=== PATIENT | male | born 1955 | race Caucasian/White ===

== ENCOUNTER 2017-05-07 15:46 | Inpatient (IN) | payer OTHER ==
[2017-05-07] MEDS ORDERED: HEPARIN SODIUM,PORCINE 5,000 UNIT/ML 1 ML VIAL IV PRN (16:20)
[2017-05-07] MEDS ORDERED: HEPARIN SODIUM,PORCINE 5,000 UNIT/ML 1 ML VIAL IV ONE (16:20)
[2017-05-07] MEDS ORDERED: NITROGLYCERIN SL TABS 0.4 MG TAB SUBLINGUAL PRN ×2 (16:20→17:28)
[2017-05-07] MEDS ORDERED: ASPIRIN 81 MG CHEW PO STA (16:20)
[2017-05-07] MEDS: ATORVASTATIN 80 MG TAB PO SCH ×2 (16:25→16:26)
[2017-05-07] MEDS: SODIUM CHLORIDE 0.9% 1,000 ML IV STA ×2 (16:27→21:23)
[2017-05-07] MEDS ORDERED: ATORVASTATIN 80 MG TAB PO STA (16:27)
--- NOTE | 2017-05-07 16:28 | ED ---
General Adult HPI - General Chief complaint: Chest Pain Stated complaint: chest pain Time Seen by Provider: 05/07/17 15:51 Source: patient, RN notes reviewed, old records reviewed Mode of arrival: ambulatory Limitations: no limitations - History of Present Illness Initial comments: This is a 61-year-old male to the ER for evaluation. This patient presents for evaluation of chest pain, anterior having anterior chest pain. A significant episode of pain yesterday and continuing with pain over hour prior to arrival he was diaphoretic on the car ride, with mild shortness of breath. Patient has both father and grandfather with history of heart disease and heart attack. Patient denies cough or congestion. At this time reaction states his pain has improved upon arrival to the emergency room - Related Data Home Medications Medication Instructions Recorded Confirmed Aspirin 81 mg PO DAILY 05/07/17 05/07/17 Allergies Allergy/AdvReac Type Severity Reaction Status Date / Time hydrocortisone Allergy Rash/Hives Verified 05/07/17 19:25 codeine AdvReac Nightmares Verified 05/07/17 19:25 Review of Systems ROS Statement: Those systems with pertinent positive or pertinent negative responses have been documented in the HPI. ROS Other: All systems not noted in ROS Statement are negative. Past Medical History Past Medical History: Hyperlipidemia History of Any Multi-Drug Resistant Organisms: None Reported Additional Past Surgical History / Comment(s): tibia repair Past Psychological History: Anxiety Smoking Status: Current every day smoker Past Alcohol Use History: Rare Past Drug Use History: None Reported General Exam Limitations: no limitations General appearance: alert, in no apparent distress, anxious Head exam: Present: atraumatic, normocephalic, normal inspection Eye exam: Present: normal appearance, PERRL, EOMI. Absent: scleral icterus, conjunctival injection, periorbital swelling ENT exam: Present: normal exam, mucous membranes moist Neck exam: Present: normal inspection. Absent: tenderness, meningismus, lymphadenopathy Respiratory exam: Present: normal lung sounds bilaterally. Absent: respiratory distress, wheezes, rales, rhonchi, stridor Cardiovascular Exam: Present: regular rate, normal rhythm, normal heart sounds. Absent: systolic murmur, diastolic murmur, rubs, gallop, clicks GI/Abdominal exam: Present: soft, normal bowel sounds. Absent: distended, tenderness, guarding, rebound, rigid Extremities exam: Present: normal inspection, full ROM, normal capillary refill. Absent: tenderness, pedal edema, joint swelling, calf tenderness Back exam: Present: normal inspection Neurological exam: Present: alert, oriented X3, CN II-XII intact Psychiatric exam: Present: normal affect, normal mood Skin exam: Present: warm, dry, intact, normal color. Absent: rash Course Vital Signs 05/07/17 05/07/17 05/07/17 15:48 16:26 16:29 Temperature 97.3 F L Pulse Rate 73 89 92 Respiratory 22 18 18 Rate Blood Pressure 144/78 212/96 199/98 O2 Sat by Pulse 100 100 99 Oximetry - Reevaluation(s) Reevaluation #1: 05/07/17 16:27 STEMI paged, spoke with integrated circuits inspector, will take patient to Health Plan Manager EKG Findings - EKG Comments: EKG Findings:: EKG shows ST elevation, inferior ST elevation, anterior V2 V3 depression Medical Decision Making - Medical Decision Making 61-year-old ER for evaluation patient because the chest pain, classic anterior chest pain having with diaphoresis, positive ST elevation on EKG. Patient be admitted to geophysical laboratory chief, heparin and aspirin - Lab Data Result diagrams: 05/09/17 06:57 05/09/17 06:57 - Radiology Data Radiology results: report reviewed (Chest x-ray negative), image reviewed Critical Care Time Critical Care Time: Yes Total Critical Care Time: 31 Disposition Clinical Impression: Acute transmural inferior wall KS, Chest pain, ST elevation myocardial infarction (STEMI) Disposition: ADMITTED IP TO THIS HOSP Condition: Serious
[2017-05-07] MEDS ORDERED: HEPARIN SODIUM,PORCINE/D5W PMX 25,000 UNIT in DEXTROSE/WATER 1 500ML.BAG IV SCH (16:30)
[2017-05-07] MEDS ORDERED: IV FLUID CONTINUATION 750 ML IV ONE (16:33)
[2017-05-07] MEDS ORDERED: SODIUM CHLORIDE 0.9% 500 ML IV ONE (16:35)
[2017-05-07 16:36] LABS: CH 33.5; CHCM 34.9; HCT 43.9 % (39.0-53.0); HDW 2.34; HGB 15.3 gm/dL (13.0-17.5); MCH 33.6 pg (25.0-35.0); MCHC 34.8 g/dL (31.0-37.0); MCV 96.4 fL (80.0-100.0); Mean Platelet Volume 7.9; RBC 4.56 m/uL (4.30-5.90); RDW 12.5 % (11.5-15.5); WBC 10.2 k/uL (3.8-10.6)
[2017-05-07 16:43] LABS: ALT 47 U/L (21-72); AST 49 U/L (17-59); Alkaline Phosphatase 92 U/L (38-126); Anion Gap 12 mmol/L; Blood Urea Nitrogen 16 mg/dL (9-20); Calcium 9.3 mg/dL (8.4-10.2); Carbon Dioxide 24 mmol/L (22-30); Chloride 104 mmol/L (98-107); Glucose 108 mg/dL (74-99); Non-African American GFR(MDRD) >60 (>60 ml/min/1.73 sqM); Sodium 140 mmol/L (137-145); Total Bilirubin 0.6 mg/dL (0.2-1.3); Total Protein 7.3 g/dL (6.3-8.2)
[2017-05-07] MEDS ORDERED: LIDOCAINE 2% INJ 20 MG/ML (20 ML MDV) ONE (16:43)
[2017-05-07] MEDS ORDERED: MIDAZOLAM 2 MG/2 ML VIAL IV ONE (16:45)
[2017-05-07 16:47] LABS: Partial Thromboplastin Time 23.3 sec (22.0-30.0); Prothrombin Time 10.3 sec (9.0-12.0)
[2017-05-07] MEDS ORDERED: diphenhydrAMINE 50 MG/ML 1 ML VIAL IVP ONE (16:47)
[2017-05-07] MEDS ORDERED: MIDAZOLAM 2 MG/2 ML VIAL ONE (16:49)
--- NOTE | 2017-05-07 16:49 | XR ---
EXAMINATION TYPE: XR chest 1V portable DATE OF EXAM: 05/07/2017 COMPARISON: NONE HISTORY: Chest pain TECHNIQUE: Single AP portable frontal upright view of the chest is obtained. FINDINGS: There is no focal air space opacity, pleural effusion, or pneumothorax seen. The cardiac silhouette size is within normal limits. The osseous structures are intact. IMPRESSION: No acute process.
[2017-05-07] MEDS ORDERED: LIDOCAINE 2% INJ 20 MG/ML SQ ONE (16:50)
[2017-05-07] MEDS ORDERED: diphenhydrAMINE 50 MG/ML 1 ML VIAL ONE (16:50)
[2017-05-07] MEDS ORDERED: METOPROLOL TARTRATE 5 MG/5 ML VIAL IVP ONE (16:53)
[2017-05-07] MEDS: METOPROLOL TARTRATE 5 MG/5 ML VIAL IVP ONE ×2 (16:56→17:04)
[2017-05-07] MEDS ORDERED: BIVALIRUDIN BOLUS 250 MG/50 ML IV ONE (17:00)
[2017-05-07] MEDS ORDERED: BIVALIRUDIN 250 MG in SODIUM CHLORIDE 0.9% 50 ML IV ONE (17:00)
[2017-05-07] MEDS ORDERED: PRASUGREL 10 MG TAB PO ONE (17:05)
[2017-05-07] MEDS ORDERED: PRASUGREL 10 MG TAB ONE (17:05)
[2017-05-07] MEDS: NITROGLYCERIN 1000MCG/10ML SYRINGE INTRAARTER ONE ×2 (17:07→17:17)
[2017-05-07] MEDS ORDERED: niCARdipine Syringe (1,000 mcg/10 mL) INTRAARTER ONE (17:09)
[2017-05-07 17:13] LABS: Creatine Kinase MB 1.8 ng/mL (0.0-2.4)
[2017-05-07 17:14] LABS: Troponin I 0.512 ng/mL (0.000-0.034)
--- NOTE | 2017-05-07 17:15 | P.CRDCN ---
History of Present Illness Consult date: 05/07/17 History of present illness: This is a 61-year-old gentleman with history of smoking, family history of ischemic heart disease and also hypercholesterolemia came to the emergency room with complaints of prolonged chest pain. He claims 2 days ago he had an episode of chest pain lasting one half hour and then subsided spontaneously. Today around 2:00 patient started having heavy feeling in the chest associated with sweating and nausea. Finally patient came to the emergency room. His EKG showed evidence of acute inferior wall myocardial infarction. Patient is advised to have a cardiac cath with the intention of primary stent placement. Patient was explained the risks and benefits of the procedure Review of Systems Not obtained. Past Medical History Past Medical History: Hyperlipidemia History of Any Multi-Drug Resistant Organisms: None Reported Additional Past Surgical History / Comment(s): tibia repair Past Psychological History: Anxiety Smoking Status: Current every day smoker Past Alcohol Use History: Rare Past Drug Use History: None Reported Medications and Allergies Allergies Allergy/AdvReac Type Severity Reaction Status Date / Time hydrocortisone Allergy Rash/Hives Verified 05/07/17 15:50 Physical Exam Vitals: Vital Signs Temp Pulse Resp BP Pulse Ox 05/07/17 16:29 92 18 199/98 99 05/07/17 16:26 89 18 212/96 100 05/07/17 15:48 97.3 F L 73 22 144/78 100 Intake and Output 05/07/17 05/07/17 05/07/17 06:59 14:59 22:59 Other: Weight 83.915 kg Patient Weight 05/08/17 06:59 Weight 83.915 kg GENERAL EXAM: Patient is alert and oriented and doesn't appear to be in any acute distress HEENT: Normocephalic. Normal reaction of pupils, equal size, normal range of extraocular motion. No erythema or exudates in the throat. NECK: No masses, no nuchal rigidity. CHEST: No chest wall deformity. LUNGS: Equal air entry with no crackles or wheeze. HEART: S1 and S2 normal with no audible mumurs or gallops. Regular rhythm, femorals equal on both sides.. ABDOMEN: No hepatosplenomegaly, normal bowel sounds, no guarding or rigidity. SKIN: No rashes CENTRAL NERVOUS SYSTEM: No focal deficits. EXTREMITIES: No cyanosis, clubbing or edema. Results 05/07/17 16:30 05/07/17 16:30 Cardiac Enzymes 05/07/17 Range/Units 16:30 AST 49 (17-59) U/L Coagulation 05/07/17 Range/Units 16:30 PT 10.3 (9.0-12.0) sec APTT 23.3 (22.0-30.0) sec CBC 05/07/17 Range/Units 16:30 WBC 10.2 (3.8-10.6) k/uL RBC 4.56 (4.30-5.90) m/uL Hgb 15.3 (13.0-17.5) gm/dL Hct 43.9 (39.0-53.0) % Plt Count 240 (150-450) k/uL Comprehensive Metabolic Panel 05/07/17 Range/Units 16:30 Sodium 140 (137-145) mmol/L Potassium 4.0 (3.5-5.1) mmol/L Chloride 104 (98-107) mmol/L Carbon Dioxide 24 (22-30) mmol/L BUN 16 (9-20) mg/dL Creatinine 0.89 (0.66-1.25) mg/dL Glucose 108 H (74-99) mg/dL Calcium 9.3 (8.4-10.2) mg/dL AST 49 (17-59) U/L ALT 47 (21-72) U/L Alkaline Phosphatase 92 (38-126) U/L Total Protein 7.3 (6.3-8.2) g/dL Albumin 4.4 (3.5-5.0) g/dL Current Medications Generic Name Dose Route Start Last Admin Trade Name Angelitoq PRN Reason Stop Dose Admin Aspirin 325 mg 05/08/17 09:00 Aspirin PO DAILY [facility] Heparin Sodium (Porcine) 0 unit 05/07/17 16:20 Heparin IV Q6HR PRN Low PTT Protocol Sodium Chloride 1,000 mls @ 100 mls/hr 05/07/17 15:54 05/07/17 16:27 Saline 0.9% IV 05/08/17 01:53 100 mls/hr .Q10H STA Administration Heparin Sodium/Dextrose 25,000 500 mls @ 19.97 mls/hr 05/07/17 16:30 unit/ IV Solution IV .Q24H JOSE Protocol 11.9 UNITS/KG/HR Nitroglycerin 0.4 mg 05/07/17 16:20 Nitrostat SUBLINGUAL Q5M PRN Chest Pain Intake and Output 05/07/17 05/07/17 05/07/17 06:59 14:59 22:59 Other: Weight 83.915 kg Patient Weight 05/08/17 06:59 Weight 83.915 kg 05/07/17 16:30 05/07/17 16:30 EKG Interpretations (text) Sinus rhythm with acute inferior wall TN Assessment and Plan (1) Acute transmural inferior wall TN Status: Acute (2) Smoking Status: Acute (3) Hyperlipidemia Status: Acute (4) Family history of ischemic heart disease Status: Acute Plan: Proceed with cardiac catheterization with the intention of primary stent placement. Meanwhile, continue with aspirin, heparin, Plavix and beta blockers
--- NOTE | 2017-05-07 17:19 | P.PCN ---
Date of Procedure: 05/07/17 Preoperative Diagnosis: Acute inferior wall [place] Postoperative Diagnosis: Subtotal occlusion of the RCA with the intermediate lesion in the proximal LAD Procedure(s) Performed: Implants: Indications for Procedure: Operative Findings: Description of Procedure: HISTORY: This 61-year-old gentleman is admitted to the hospital with acute inferior wall myocardial infarction CONSENT:I have discussed the risks, benefits and alternative therapies for the above-mentioned procedure and for both sedation/analgesia as well as necessary blood product administration, if indicated, as they pertain to this patient. The patient has indicated understanding and acceptance of the risks and procedures discussed. . CONSCIOUS SEDATION: Patient was given Versed for sedation. The duration of the sedation is 15 minutes PROCEDURE: Patient was brought to the lab in a fasting state. Patient was given some IV sedation. The right groin is infiltrated with lidocaine and right femoral artery was entered using Seldinger technique. A 6-Rwandan catheter was left in place and selective coronary arteriography was performed. Patient tolerated the procedure well. No immediate complications were noted . Patient went on to have stent placement of the RCA by Dr. Russo HEMODYNAMICS: The aortic pressure is 160/98. Left ankle end-diastolic pressure was not measured. SELECTIVE CORONARY ARTERIOGRAPHY: LEFT MAIN: Normal length and patent THE LEFT ANTERIOR DESCENDING CORONARY ARTERY: . This is a good caliber vessel with about 50% stenosis involving the ostium. This is followed by an area. Affect is here. He did use ice to moderate caliber first diagonal branch. There is mild disease in the distal LAD THE LEFT CIRCUMFLEX AND IS CORONARY ARTERY: This is a good caliber vessel giving rise good-sized first OM branch. The circumflex and the branch are free of occlusive disease. THE RIGHT CORONARY ARTERY: This is a dominant vessel giving rise good-sized PDA and PLV. It has 95% stenosis in the distal portion with a filling defect size to of clot LEFT VENTRICULOGRAPHY: Not performed FINAL IMPRESSION: . Subtotal occlusion of the distal RCA with a clot. Moderate disease in the proximal LAD PLAN: Stent placement of the RCA PROGNOSIS: Guarded
[2017-05-07] MEDS ORDERED: IOHEXOL 350 MG/ML 125ML BOTTLE INJ ONE (17:21)
[2017-05-07] MEDS ORDERED: MAG HYDROX/AL HYDROX/SIMETH 30 ML CUP PO PRN (17:28)
[2017-05-07] MEDS ORDERED: ATROPINE SULFATE 0.1 MG/ML 10ML SYRINGE IV PRN (17:28)
[2017-05-07] MEDS ORDERED: ZOLPIDEM 5 MG TAB PO PRN (17:28)
[2017-05-07] MEDS ORDERED: RX INFO: IV CONTRAST WAS GIVEN 1 EACH MISC MISCELLANE PRN (17:28)
[2017-05-07] MEDS ORDERED: SODIUM CHLORIDE 0.9% 1,000 ML IV SCH (17:30)
[2017-05-07] MEDS ORDERED: ONDANSETRON 4 MG/2 ML VIAL ONE (18:23)
[2017-05-07] MEDS ORDERED: ONDANSETRON 4 MG/2 ML VIAL IVP ONE (18:25)
[2017-05-07 18:56] LABS: Glucose,Whole Blood 106 mg/dL (75-99)
[2017-05-07] MEDS ORDERED: ATORVASTATIN 80 MG TAB PO SCH (21:00)
[2017-05-07] MEDS: METOPROLOL TARTRATE 25 MG TAB PO SCH (21:22)
[2017-05-07 22:06] VITALS: BMI 26.5
[2017-05-07 23:50] LABS: Creatine Kinase MB 16.9 ng/mL (0.0-2.4); Troponin I 3.28 ng/mL (0.000-0.034)
[2017-05-08] MEDS ORDERED: ALPRAZolam 0.25 MG TAB PO PRN (01:06)
[2017-05-08 04:45] LABS: Cholesterol 213 mg/dL (<200); HDL Cholesterol 30 mg/dL (40-60); Non-African American GFR(MDRD) >60 (>60 ml/min/1.73 sqM); Triglycerides 188 mg/dL (<150)
[2017-05-08 06:14] LABS: Basophils # (A) 0.1 k/uL (0-0.2); Basophils % (A) 1 %; CH 33.3; CHCM 34.5; Eosinophils # (A) 0.4 k/uL (0-0.7); Eosinophils % (A) 4 %; HCT 43.3 % (39.0-53.0); HDW 2.29; HGB 14.8 gm/dL (13.0-17.5); Luc # (Auto) 0.15; Luc % (Auto) 1; Lymphocytes # (A) 2.1 k/uL (1.0-4.8); Lymphocytes % (A) 20 %; MCH 33.3 pg (25.0-35.0); MCHC 34.3 g/dL (31.0-37.0); Monocytes # (A) 0.6 k/uL (0-1.0); Monocytes % (A) 6 %; Neutrophils # (A) 6.8 k/uL (1.3-7.7); Neutrophils % (A) 67 %; RBC 4.46 m/uL (4.30-5.90); RDW 12.9 % (11.5-15.5); WBC 10.1 k/uL (3.8-10.6); WBC (Perox) 10.37
[2017-05-08 06:16] LABS: Anion Gap 9 mmol/L; Blood Urea Nitrogen 11 mg/dL (9-20); Calcium 8.9 mg/dL (8.4-10.2); Carbon Dioxide 21 mmol/L (22-30); Chloride 112 mmol/L (98-107); Glucose 90 mg/dL (74-99); Sodium 142 mmol/L (137-145)
[2017-05-08 06:18] LABS: Mean Platelet Volume 7.9
[2017-05-08] MEDS ORDERED: ASPIRIN 325 MG TAB PO SCH (09:00)
[2017-05-08] MEDS: NICOTINE 14MG/24HR PATCH TRANSDERM SCH (09:04)
[2017-05-08] MEDS: LISINOPRIL 10 MG TAB PO SCH (09:04)
[2017-05-08] MEDS: PRASUGREL 10 MG TAB PO SCH (09:04)
[2017-05-08] MEDS: ASPIRIN 325 MG TAB PO SCH (09:04)
[2017-05-08] MEDS: METOPROLOL TARTRATE 25 MG TAB PO SCH ×2 (09:04→20:58)
--- NOTE | 2017-05-08 11:24 | ECHOF ---
Referral Reason:stemi MEASUREMENTS -------- HEIGHT: 152.4 cm WEIGHT: 83.9 kg BP: 132/85 RVIDd: 3.4 cm (< 3.3) IVSd: 1.4 cm (0.6 - 1.1) LVIDd: 4.2 cm (3.9 - 5.3) LVPWd: 0.9 cm (0.6 - 1.1) IVSs: 1.6 cm LVIDs: 3.0 cm LVPWs: 1.0 cm LA Diam: 3.4 cm (2.7 - 3.8) LAESV Index (A-L): 28.91 ml/m Ao Diam: 3.7 cm (2.0 - 3.7) AV Cusp: 1.9 cm (1.5 - 2.6) LA Diam: 3.3 cm (2.7 - 3.8) MV EXCURSION: 18.048 mm (> 18.000) MV EF SLOPE: 150 mm/s (70 - 150) EPSS: 0.8 cm MV E Zeyad: 0.51 m/s MV DecT: 125 ms MV A Zeyad: 0.66 m/s MV E/A Ratio: 0.77 RAP: 5.00 mmHg RVSP: 11.59 mmHg FINDINGS -------- Sinus rhythm. This was a technically adequate study. There is mild concentric left ventricular hypertrophy. Overall left ventricular systolic function is mildly impaired with, an EF between 45 - 50 %. Inferior basal Hypokinesis Basal septal hypokinesis The right ventricle is normal in size. LA is midly dilated 29-33ml/m2. The right atrial size is normal. There is mild aortic valve sclerosis. There is no evidence of aortic regurgitation. Mild mitral annular calcification present. Mild mitral regurgitation is present. Mild tricuspid regurgitation present. There is no evidence of pulmonary hypertension. The right ventricular systolic pressure, as measured by Doppler, is 11.59mmHg. There is no pulmonic regurgitation present. The aortic root size is normal. There is no pericardial effusion. CONCLUSIONS -------- 1. There is mild concentric left ventricular hypertrophy. 2. There is no evidence of pulmonary hypertension. 3. The right ventricular systolic pressure, as measured by Doppler, is 11.59mmHg. 4. There is no pulmonic regurgitation present. 5. The aortic root size is normal. 6. There is no pericardial effusion. 7. Overall left ventricular systolic function is mildly impaired with, an EF between 45 - 50 %. 8. Inferior basal Hypokinesis 9. Basal septal hypokinesis 10. LA is midly dilated 29-33ml/m2. 11. There is mild aortic valve sclerosis. 12. Mild mitral annular calcification present. 13. Mild mitral regurgitation is present. 14. Mild tricuspid regurgitation present. MANAGER PACU: Constance Walsh RDCS
--- NOTE | 2017-05-08 12:10 | PTCA ---
DATE OF SERVICE: 05/07/2017 PERFORMING PHYSICIAN: Luis Haley MD, Transcribing Machine Mechanic. PROCEDURE PERFORMED: 1. An aspiration thrombectomy from the RCA. 2. Successful stenting of the RCA using 2.75 x 23 mm Xience DS with good angiographic results. COMPLICATIONS: None. INDICATION: This is a pleasant 61-year-old gentleman who presented to the hospital with chest discomfort and was diagnosed with acute inferior ST myocardial infarction and underwent emergent heart catheterization by Dr. Gonzalez and was found to have plaque rupture and thrombus formation involving the distal RCA. LEVEL OF SEDATION: Moderate. The sedation length of 22 minutes. PROCEDURE DESCRIPTION: After diagnostic heart catheterization was performed by Dr. Gonzalez and after reviewing the angiogram, we decided to pursue the interventional and the RCA. Anticoagulation was initiated using Angiomax. Subsequently a JR4 guide and the RCA was engaged. The Whisper wire was used to wire the RCA but subsequently I did aspiration thrombectomy from the distal RCA. Then I did stent the RCA distally using 2.75 x 23 mm Xience DS where the stent was positioned under fluoroscopic guidance and deployed under 14 atmospheres for 20 seconds with a post-dilated descent using 3.0 mm noncompliant balloon. The following angiogram showed good angiographic results without perforation and without dissection. The procedure was completed without any complication. PROCEDURE MANAGEMENT: 1. Dual antiplatelet therapy. ( ). 2. Will follow up with the patient. RANDY
--- NOTE | 2017-05-08 13:46 | HP ---
DATE OF ADMISSION: 05/07/17 CHIEF COMPLAINT: Chest pain. HISTORY OF PRESENT ILLNESS: This is a 61-year-old gentleman with a past medical history of multiple medical problems including hyperlipidemia, history of anxiety, being followed by primary physician in [place], was visiting family for vacation. The patient had chest pain which was felt in the anterior part of the chest for the last several days. Because of increasing pain, the patient came to [facility] and was found to have acute hyperacute inferior wall myocardial infarction. The patient underwent a cardiac catheterization which shows subtotal occlusion of the RCA with intermediate lesion in the proximal LAD. The patient underwent stenting of the RCA and the patient is being monitored in the ICU at this time. Otherwise troponin elevated up to 3.280, creatinine kinase 282. There is no fever, rigors or chills. No history of headache, loss of consciousness or seizures. Past medical history of hyperlipidemia, anxiety. Medications prior to admission are: Aspirin 81 mg daily. ALLERGIES: HYDROCORTISONE. FAMILY HISTORY: No history of heart disease or strokes in the family. SOCIAL HISTORY: History of smoking. Current smoking. REVIEW OF SYSTEMS: ENT: No diminished vision. No diminished hearing. Cardiovascular: As mentioned earlier. Respiratory: No cough, hemoptysis. GI: No nausea or vomiting. : No dysuria. Nervous system: No numbness or weakness. Allergy/Immunology: No asthma or hayfever. Musculoskeletal: As mentioned earlier. Hematology/Oncology: No history of anemia. Endocrine: No history of diabetes mellitus or hypothyroidism. Constitutional: As mentioned earlier. Dermatology: Negative. Rheumatology: Negative. Psychiatry: As mentioned earlier. PHYSICAL EXAMINATION: Alert and oriented times three. Pulse 72. Blood pressure 131/81. Respiratory rate 21, temperature 97.8. Pulse ox 98% on 2 L. HEENT: Conjunctivae normal. Oral mucosa moist. NECK: No JVD. No carotid bruit. No lymph node enlargement. Cardiovascular: S1, S2 muffled. No S3, no S4. Respiratory: Breath sounds diminished at the bases. No rhonchi. No crackles. Abdomen is soft. Nontender. No mass palpable. Legs: No edema. No swelling.. Nervous system: Higher functions as mentioned earlier. Moves all four limbs. No focal motor or sensory deficits. Lymphatics: No lymph nodes palpable in the neck, axillae or groin. SKIN: No ulcer, rash or bleeding. LABS: CBC within normal limits. Glucose 106. Creatinine kinase 282. Troponin 3.80. ASSESSMENT: 1. Hyperacute inferior wall myocardial infarction status post cardiac catheterization and RCA stenting. 2. History of nicotine dependence. 3. Hyperlipidemia. 5. History of anxiety. RECOMMENDATIONS AND DISCUSSION: In this 61-year-old gentleman who presented with multiple complex medical issues, we will monitor the patient closely. Closely monitor in the ICU. Continue beta blockers. Lipitor. As well as antiplatelet agents including Effient. Closely follow with cardiology. Repeat labs will ordered. Otherwise 2D echo with Doppler has been ordered. Prognosis guarded because of multiple complex medical issues. Discussed with the patient. Smoking cessation has been recommended also. Further recommendations to follow. See orders for further details. Discussed with the patient, understands and agrees. RANDY
[2017-05-08 15:40] VITALS: RESP 16
[2017-05-08] MEDS ORDERED: ATORVASTATIN 80 MG TAB PO SCH (21:00)
[2017-05-09 07:19] LABS: Basophils # (A) 0.1 k/uL (0-0.2); Basophils % (A) 1 %; CH 33.3; CHCM 34.7; Eosinophils # (A) 0.4 k/uL (0-0.7); Eosinophils % (A) 4 %; HCT 44.9 % (39.0-53.0); HDW 2.28; HGB 15.2 gm/dL (13.0-17.5); Luc # (Auto) 0.15; Luc % (Auto) 2; Lymphocytes # (A) 2.3 k/uL (1.0-4.8); Lymphocytes % (A) 25 %; MCH 32.7 pg (25.0-35.0); MCHC 33.9 g/dL (31.0-37.0); MCV 96.4 fL (80.0-100.0); Mean Platelet Volume 7.7; Monocytes # (A) 0.6 k/uL (0-1.0); Monocytes % (A) 6 %; Neutrophils # (A) 5.7 k/uL (1.3-7.7); Neutrophils % (A) 62 %; RBC 4.66 m/uL (4.30-5.90); RDW 13.3 % (11.5-15.5); WBC 9.2 k/uL (3.8-10.6); WBC (Perox) 8.64
[2017-05-09 07:42] LABS: Anion Gap 9 mmol/L; Blood Urea Nitrogen 13 mg/dL (9-20); Calcium 9.1 mg/dL (8.4-10.2); Carbon Dioxide 25 mmol/L (22-30); Chloride 109 mmol/L (98-107); Glucose 84 mg/dL (74-99); Non-African American GFR(MDRD) >60 (>60 ml/min/1.73 sqM); Potassium 4.2 mmol/L (3.5-5.1); Sodium 143 mmol/L (137-145)
[2017-05-09] MEDS: ASPIRIN 325 MG TAB PO SCH (09:07)
[2017-05-09] MEDS: PRASUGREL 10 MG TAB PO SCH (09:07)
[2017-05-09] MEDS: LISINOPRIL 10 MG TAB PO SCH (09:07)
[2017-05-09] MEDS: NICOTINE 14MG/24HR PATCH TRANSDERM SCH (09:07)
[2017-05-09] MEDS: METOPROLOL TARTRATE 25 MG TAB PO SCH (09:07)
[2017-05-09 12:06] VITALS: BP 117/58; PULSE 72; TEMP 96.9
--- NOTE | 2017-05-09 14:50 | P.PN ---
Subjective Principal diagnosis: STEMI This is a 61-year-old gentleman with history of smoking, family history of ischemic heart disease and also hypercholesterolemia came to the emergency room with complaints of prolonged chest pain. He claims 2 days ago he had an episode of chest pain lasting one half hour and then subsided spontaneously. Today around 2:00 patient started having heavy feeling in the chest associated with sweating and nausea. Finally patient came to the emergency room. His EKG showed evidence of acute inferior wall myocardial infarction. Patient was taken to the cardiac catheterization lab where he underwent angioplasty with stenting of the right coronary artery. He was seen and examined this morning, denies any chest pain or difficulty in breathing. He has been up ambulating without any difficulty. EKG shows normal sinus rhythm with no changes from post -PCI. Echo cardiac gram with Doppler study was performed which revealed an ejection fraction of 45-50% with inferior basal hypokinesia. CBC normal. Potassium 4.2, BUN 13, creatinine 0.9. Objective - Vital Signs Vital signs: Vital Signs Temp 96.9 F L 05/09/17 12:00 Pulse 72 05/09/17 12:00 Resp 16 05/09/17 12:00 BP 117/58 05/09/17 12:00 Pulse Ox 97 05/09/17 12:00 Intake & Output 05/08/17 05/09/17 05/09/17 18:59 06:59 18:59 Intake Total 390 118 Output Total 300 Balance 90 118 Weight 86 kg Intake: IV 150 Sodium Chloride 0.9% 1, 150 000 ml @ 100 mls/hr IV . Q10H [facility] Rx#:[id number] Oral 240 118 Output: Urine 300 Other: Voiding Method Urinal Toilet # Voids 1 1 1 - Exam PHYSICAL EXAMINATION: HEENT: Head is atraumatic, normocephalic. Pupils equal, round. Neck is supple. There is no elevated jugular venous pressure. HEART EXAMINATION: Heart S1, S2 normal. No murmur or gallop heard. CHEST EXAMINATION: Lungs are clear to auscultation and precussion. No chest wall tenderness is noted on palpation or with deep breathing. ABDOMEN: [ Soft, nontender. Bowel sounds are heard. No organomegaly noted]. Right groin soft, no evidence of any hematoma. EXTREMITIES:[ 2+ peripheral pulses with no evidence of peripheral edema and no calf tenderness noted]. NEUROLOGIC [patient is awake, alert and oriented -3.] . - Labs CBC & Chem 7: 05/09/17 06:57 05/09/17 06:57 Labs: Abnormal Lab Results - Last 24 Hours (Table) 05/09/17 Range/Units 06:57 Chloride 109 H (98-107) mmol/L Assessment and Plan (1) ST elevation (STEMI) myocardial infarction involving right coronary artery Status: Acute (2) S/P right coronary artery (RCA) stent placement Status: Acute (3) Family history of ischemic heart disease Status: Acute (4) Hyperlipidemia Status: Acute (5) Smoking Status: Acute Plan: From cardiology's perspective, patient may be able to be discharged home today. He's been instructed regarding the importance of smoking cessation. He will be discharged home on aspirin 81 mg daily, Lipitor 80 mg daily, lisinopril 10 mg daily, metoprolol tartrate 25 mg one tablet by mouth twice a day, nicotine patch, Effient 10 mg daily and sublingual nitroglycerin as needed for chest pain. Patient has been educated regarding his medication as well as the importance of nicotine cessation. A follow-up appointment will be made with Dr. Gonzalez in the office in one week. DNP note has been reviewed, I agree with a documented findings and plan of care. Patient was seen and examined.
--- NOTE | 2017-05-09 15:51 | PN ---
DATE OF SERVICE: 05/08/17 This 61-year-old gentleman woman who was admitted with acute inferior wall myocardial infarction and stenting is being closely monitored. No chest pain. No palpitations. No fever. On exam, alert and oriented times three. Pulse is 77. Blood pressure is 123/ 69. Respiratory rate 16. Temperature 98.4 degrees. Pulse ox 94% on room air. HEENT: Conjunctivae normal. Oral mucosa moist. NECK: No JVD. No carotid bruit. No thyroid enlargement. Cardiovascular: S1, S2 muffled. No S3, no S4. Respiratory: Breath sounds diminished at the bases. No rhonchi and no crackles. Abdomen is soft. Nontender. Legs: No edema. No swelling. Nervous system: No focal deficits. The labs are troponin 3.280, triglycerides 188, 213, LDL 145. FINAL ASSESSMENT: 1. Acute ST segment elevation inferior wall myocardial infarction status post cardiac catheterization and RCA stenting. 2. Hyperlipidemia. 3. History of nicotine dependence. 4. History of anxiety. RECOMMENDATIONS AND DISCUSSION: Recommend to continue the current medications. Continue with monitoring. Symptomatic treatment. Otherwise, recommend to continue the antiplatelet agents. Continue with Lipitor. Continue with smoking cessation advised. Increase ambulation. Guarded prognosis. Further recommendations to follow. MTDD
--- NOTE | 2017-05-12 11:21 | DS ---
FINAL DIAGNOSES; 1. Acute ST segment elevation inferior wall myocardial infarction status post cardiac catheterization and right coronary artery stenting. 2. Hyperlipidemia. 3. History of nicotine dependence. 4. History of anxiety. DISCHARGE CONDITION: The patient will be discharged in stable condition with guarded prognosis. HISTORY OF PRESENT ILLNESS: This 61-year-old gentleman was admitted with acute ST segment elevation myocardial infarction, had a cardiac catheterization and stenting as mentioned earlier. No chest pain or palpitation. The patient improved significantly. Cardiology saw the patient. On exam vitals are stable. CARDIOVASCULAR: S1/S2. ABDOMEN: Soft. NERVOUS SYSTEM: No focal deficit. DISCHARGE DIET: Cardiac. ACTIVITY: Limited until follow up. No smoking. Follow up with Dr. Gonzalez in 2-3 days. Follow up with the primary physician in 2-3 days. MEDICATIONS: 1. Aspirin 81 mg p.o. daily. 2. Lipitor 80 mg q h.s. 3. Zestril 10 mg p.o. daily. 4. Lopressor 25 mg p.o. b.i.d. 5. Habitrol 14 daily. 6. Nitrostat 0.4 mg p.r.n. 7 Effient 10 mg p.o. daily. MTDD
== END 2017-05-09 15:25 | disposition home or self-care (01) | DRG 247 ==
LOC: EC 15:46 → 6ICU 16:20 → 6SEL 05-08 14:12
PROVIDERS: ADMIT Hospitalist; ATTEND Hospitalist
PROC: 4A023N7 Measurement of Cardiac Sampling and Pressure, Left Heart, Percutaneous Approach (ICD-10-PCS; 2017-05-07)
PROC: B2111ZZ Fluoroscopy of Multiple Coronary Arteries using Low Osmolar Contrast (ICD-10-PCS; 2017-05-07)
PROC: 027034Z Dilation of Coronary Artery, One Artery with Drug-eluting Intraluminal Device, Percutaneous Approach (ICD-10-PCS; principal; 2017-05-07 16:33)
PROC: 02C03ZZ Extirpation of Matter from Coronary Artery, One Artery, Percutaneous Approach (ICD-10-PCS; 2017-05-07 16:33)
DX: I21.19 ST elevation (STEMI) myocardial infarction involving other coronary artery of inferior wall (principal); E78.5 Hyperlipidemia, unspecified; I25.9 Chronic ischemic heart disease, unspecified; F17.200 Nicotine dependence, unspecified, uncomplicated; F41.9 Anxiety disorder, unspecified; Z79.82 Long term (current) use of aspirin; Z88.5 Allergy status to narcotic agent; Z88.8 Allergy status to other drugs, medicaments and biological substances; Z82.49 Family history of ischemic heart disease and other diseases of the circulatory system
CPT/HCPCS: 36415; 71010; 80048; 80053; 80061; 82550; 82553; 83880; 84484; 85025; 85027; 85610; 85730; 93306; 93454; 96374; 99291